=== PATIENT | female | born 1950 | race Caucasian/White ===

== ENCOUNTER → 2016-09-28 | Day surgery (SDC) | payer MEDICARE ==
[~2016-09-28] MED LIST: ADVAIR; ALBUTEROL17 GM INH; BENICAR; BENTYL10 M1 PO; BREO ELLIPTA 11 EACH INH; BUTORPHANOL10 MG/ML NS; CORGARD40 MG PO; CYMBALTA PO; DIPHENOXYLATE/A1 TA2 PO; DITROPAN5 MG PO; FISH OIL 1,001000 M1 PO; FLEXERIL10 MG PO; GABAPENTIN600 MG PO; HYDROCHLOROTHIA25 MG PO; LISINOPRIL-HCTZ1 T15 PO; LISINOPRIL20 MG PO; MEDI-MECLIZINE25 M1 PO; MOBIC15 MG PO; OMEPRAZOLE20 M2; OXYBUTYNIN5 MG/BOTTL PO; PERCOCET 7.5-31 EACH PO; SEROQUEL PO; SPIRIVA18 MCG INH; SYNTHROID PO; TRAMADOL HCL50 M2 PO; TRILEPTAL PO; TYLENOL ARTHRITIS; VENTOLIN; VIT D PO; VITAMIN D50000 UNIT PO; ZOLOFT PO; [UNRECOGNIZED DRUG - OTHER] PO
--- NOTE | ~2016-09-28 | OR ---
Unit #: [id number] #: [id number] Patient: FREDA RUELAS [id number] [address] [place], [place] [address] [id number] O MR#: [id number] NAME: FREDA RUELAS ROOM: Date of Procedure: 09/28/2016 Admission Date: 09/28/2016 Surgeon: Scout Donnelly M.D. : 1950 Attending Physician: Scout Donnelly M.D. Primary Care Physician: Randall Hassan M.D. OPERATIVE REPORT PREOPERATIVE DIAGNOSES 1. Low back pain, radiculopathy, degenerative lumbar disk disease. 2. Neck pain, cervical degenerative disk disease with myelopathy, cervical radiculopathy. POSTOPERATIVE DIAGNOSES 1. Low back pain, radiculopathy, degenerative lumbar disk disease. 2. Neck pain, cervical degenerative disk disease with myelopathy, cervical radiculopathy. PROCEDURE PERFORMED 1. Lumbar epidural steroid injection with intravenous sedation and fluoroscopic guidance for needle localization. 2. Cervical epidural steroid injection with fluoroscopic guidance. INDICATIONS FOR PROCEDURE The patient is a 66-year-old female with previously mentioned diagnosis. She failed to settle with conservative treatment alone. She had multilevel multifactorial degenerative changes, so the plan is to give a trial of epidural steroids. Two were done at this point over the last month and a half or so. They given definite initial good improvement. She only maintain mild improvement to see if she does better with a full series. We are going to proceed with a final injection today and then see her back at the pain center in a few weeks' time. DESCRIPTION OF PROCEDURE The patient was placed in a seated position. Standard monitors were applied. 1 mg of Versed was given for sedation and anxiolysis, which was adequate. Vital signs remained stable. Sterile prep and drape then of lumbar area was performed. The skin then at the L4 level was localized with 1% lidocaine. An 18-gauge [employer] needle was then advanced via loss of resistance technique and fluoroscopic guidance in toward the epidural space. The patient did not complain of any pain or paresthesia during needle advancement. After confirming proper positioning with fluoroscopy and radiographic contrast, 80 mg of Depo-Medrol and 6 mL of 0.125% bupivacaine were deposited. Procedure #2: Cervical epidural steroid injection. A separate kit was used to sterilely prep and drape the patient's cervical spine. The skin then at the C6 level was localized with 1% lidocaine. An 18-gauge [employer] needle was then advanced via hanging drop technique and fluoroscopic Unit #: [id number] #: [id number] Patient: FREDA RUELAS guidance in toward the epidural space. After confirming proper positioning with fluoroscopy and radiographic contrast, 80 mg of Depo-Medrol and 2 mL of 0.25% bupivacaine were deposited. The patient tolerated the procedure otherwise well and was discharged to the recovery room in stable condition. Dictated by... Sowmya Coyne/carmen TD: 09/29/2016 01:54 JOB #: [id number] OPERATIVE REPORT X Scout Donnelly MD X PROCEDURE OPERATIVE NOTE
== END | disposition home or self-care (01) ==
LOC: CCSC 10:50
PROVIDERS: Pain Medicine Pain Medicine
PROC: 3E0R33Z Introduction of Anti-inflammatory into Spinal Canal, Percutaneous Approach (ICD-10-PCS; principal; 2016-09-28 11:45)
PROC: 3E0R3BZ Introduction of Anesthetic Agent into Spinal Canal, Percutaneous Approach (ICD-10-PCS; 2016-09-28 11:45)
DX: M51.17 Intervertebral disc disorders with radiculopathy, lumbosacral region (principal); M50.122 Cervical disc disorder at C5-C6 level with radiculopathy; M50.022 Cervical disc disorder at C5-C6 level with myelopathy; I10 Essential (primary) hypertension
CPT/HCPCS: J1040; J2250

== ENCOUNTER → 2016-09-30 | Outpatient (CLI) | payer MEDICARE ==
--- NOTE | ~2016-09-30 | CR265 ---
[facility] A Service of [facility] RADIOLOGY TEXT RESULTS PATIENT: FREDA RUELAS LOCATION: [facility] : 50 UNIT #: [id number] AGE: [address]: Jose Peter MD SEX: F ORDER DR: [id number] [facility] [address] [place], [place] [address] [id number] O MR#: [id number] Acc #: [id number] NAME: FREDA RUELAS : 1950 SEX: F STUDY DATE/TIME: 09/30/2016 9:25 UNIT: [facility] ROOM: STUDY DESCRIPTION: CR Upper GI Series Wo KUB Attending Physician: Jose Peter M.D. Referring Physician: Jose Peter M.D. Ordering Physician: Jose Peter M.D. Primary Care Physician: Randall Hassan M.D. MEDICAL IMAGING REPORT This report is preliminary unless electronic signature is present EXAM Upper GI series. HISTORY The patient has a history of prior microscopic gastric band placement. She reports that is going to have her laparoscopic gastric band removed and undergo creation of gastric sleeve. Currently she reportedly has no fluid within the band. TECHNIQUE This was performed as a single contrast study. Please note patient has limited mobility. FINDING Initial clinical research nurse coordinator image was obtained and was found be 48.9 degrees. Patient was administered thin barium within the upright GERMAN position. Patient's esophagus appeared to be of normal caliber with no evidence of stricture or mass lesion. Esophageal motility appeared to be normal. There is prompt emptying of contrast material through the band into the stomach. There was no evidence of microscopic gastric band slippage. At this point the patient was placed in the supine, GERMAN position. Multiple images were obtained over the upper abdomen. Patient's stomach and proximal small bowel appear to be unremarkable. Duodenal bulb was grossly unremarkable as well. Again, this is a technically limited examination as the patient really was unable to roll on the table, but no obvious abnormality was seen. Patient was incidentally noted to have an inferior vena cava filter. A total of 16 fluoroscopic images were obtained. Total fluoroscopy time was 0.8 minutes. IMPRESSION Unremarkable single contrast upper GI series. Please note this was a limited examination due to this patient's very limited mobility. Patient's esophageal motility appeared to be normal. There was no STS. [facility] A Service of [facility] RADIOLOGY TEXT RESULTS PATIENT: FREDA RUELAS LOCATION: [facility] : 50 UNIT #: [id number] AGE: [address]: Jose Peter MD SEX: F ORDER DR: evidence of reflux. There was prompt emptying of contrast material through the band into the stomach. The patient's stomach and proximal small bowel appeared grossly normal. Dictated by... Libra Coburn M.D. THIS IS AN ELECTRONICALLY VERIFIED REPORT Libra Coburn M.D. at 10/01/2016 4:38 PM AFF/gz TD: 10/01/2016 10:31 JOB #: [id number] MEDICAL IMAGING REPORT COPY
== END | disposition home or self-care (01) ==
LOC: CRAD 08:21
DX: E66.01 Morbid (severe) obesity due to excess calories (principal)
CPT/HCPCS: 74240